=== PATIENT | female | born 2000 | race Caucasian/White ===

== ENCOUNTER 2022-01-20 14:18 | Emergency (ER) | payer OTHER ==
[2022-01-20 14:29] VITALS: BMI 28.3
[2022-01-20] MEDS ORDERED: ACETAMINOPHEN 1000 MG/100 ML BAG IVPB ONE (16:19)
[2022-01-20] MEDS ORDERED: ONDANSETRON 4 MG/2 ML VIAL IVPUSH ONE (16:19)
[2022-01-20] MEDS ORDERED: SODIUM CHLORIDE 1,000 ML IV STA (16:19)
[2022-01-20] MEDS ORDERED: ACETAMINOPHEN INJECTION 100 ML IVPB ONE (16:33)
[2022-01-20] MEDS ORDERED: ONDANSETRON 4 MG/2 ML VIAL ONE (16:33)
[2022-01-20 17:25] LABS: BASO % 1.3 % (0-2.0); EOS % 0.1 % (0-4.5); HEMATOCRIT 41.3 % (32.4-45.2); HEMOGLOBIN 13.7 GM/dL (10.7-15.3); LYMPH % 8.2 % (8-40); MCH 26.4 pg (25.7-33.7); MEAN CELL VOLUME 79.8 fl (80-96); MONO % 23.2 % (3.8-10.2); NEUT % 67.2 % (42.8-82.8); PLATELET COUNT 311 10^3/uL (134-434); RBC 5.18 M/mm3 (3.60-5.2); RDW 14.4 % (11.6-15.6); WHITE BLOOD COUNT 5.5 K/mm3 (4.0-10.0)
[2022-01-20 17:40] LABS: ALBUMIN 3.7 g/dl (3.4-5.0); BLOOD UREA NITROGEN 11.5 mg/dL (7-18); CALCIUM 9.2 mg/dL (8.5-10.1)
[2022-01-20 17:43] LABS: CREATININE 0.7 mg/dL (0.55-1.3)
[2022-01-20 17:45] LABS: BILIRUBIN,TOTAL 0.2 mg/dL (0.2-1); TOT PROT 7.6 g/dl (6.4-8.2)
[2022-01-20 18:08] LABS: ANISOCYTOSIS 1+; MACROCYTOSIS 1+
[2022-01-20 18:15] LABS: PLATELET ESTIMATE ADEQUATE
[2022-01-20 18:16] LABS: URINE APPEARANCE CLEAR; URINE BILIRUBIN NEGATIVE (NEGATIVE); URINE COLOR YELLOW; URINE GLUCOSE (UA) NEGATIVE (NEGATIVE); URINE KETONE 2+ (NEGATIVE); URINE LEUK ESTERASE NEGATIVE (NEGATIVE); URINE NITRITE NEGATIVE (NEGATIVE); URINE PROTEIN NEGATIVE (NEGATIVE); URINE UROBILINOGEN 0.2 mg/dL (0.2-1.0)
[2022-01-20 18:18] LABS: HCG,QUALITATIVE URINE Negative
[2022-01-20 18:48] VITALS: BP 125/54; PULSE 96; TEMP 98.7
== END 2022-01-20 18:51 | disposition home or self-care (01) ==
LOC: JER 14:18
PROC: 3E033GC Introduction of Other Therapeutic Substance into Peripheral Vein, Percutaneous Approach (ICD-10-PCS; principal; 2022-01-20)
DX: R11.2 Nausea with vomiting, unspecified (principal)
CPT/HCPCS: 36415; 80053; 81003; 83690; 84703; 85025; 87086; 99284-25